=== PATIENT | male | born 1980 | race Caucasian/White ===

== ENCOUNTER 2021-06-19 02:23 | Observation (INO) | payer MEDICAID, SELFPAY ==
[2021-06-19] VITALS (11 sets, daily range): BP systolic 111–126; BP diastolic 60–75; PULSE 73–115; RESP 13–30; TEMP 36.4; O2SAT 90–100; BMI 28.0
--- NOTE | ~2021-06-19 | XR_ITS ---
EXAMINATION: XR CHEST CLINICAL INFORMATION: Shortness of breath COMPARISON: 04/16/2014 TECHNIQUE: Frontal view of the chest was obtained. FINDINGS: The lungs are well expanded. There is no focal consolidation, edema, or effusion. No pneumothorax. The cardiomediastinal silhouette is within normal limits. No acute osseous abnormality. XR/XR chest 1V IMPRESSION: Clear lungs.
[2021-06-19] MEDS: Albuterol Sulfate (0.083%) 2.5 MG/3 ML VIAL.NEB 10 MG INHALE ×3 (02:39→04:18)
[2021-06-19 02:54] LABS: COVID-19 Test Negative (Negative)
[2021-06-19] MEDS: Acetaminophen 325 MG TABLET 975 MG PO (03:16)
--- NOTE | 2021-06-19 03:16 | PC.NURSE ---
Assumed care of pt at 0315. Pt medicated per anthony BUI in process. Pt attached to property assessment monitor and pulse ox. Call light at hand
--- NOTE | 2021-06-19 04:02 | ED_ITS ---
HPI - Asthma General Chief Complaint: Asthma Stated Complaint: sob Time Seen by Provider: 06/19/21 02:26 Source: patient Mode of arrival: EMS History of Present Illness HPI Narrative: 41-year-old male brought in via EMS with a history of asthma that states he has been having worsening shortness of breath over the past 2 days, denies cigarette use but does smoke marijuana daily. Patient then had significant exacerbation which prompted his arrival. EN route, EMS reports giving 125 mg of Solu-Medrol, Mag, as well as 3 DuoNebs. He otherwise denies any fevers, chills, GI or symptoms. Related Data Allergies Allergy/AdvReac Type Severity Reaction Status Date / Time No Known Allergies Allergy Unverified 01/13/20 18:49 [No Known Allergies*] Review of Systems Review of Systems: Pertinent positives and negatives as stated in HPI 10 point review systems is otherwise negative. PMFSH Past Medical History Source: nursing notes reviewed Physical Exam Vital Signs: Vital Signs: Last Vital Signs Pulse 85 06/19/21 05:14 Resp 13 06/19/21 04:19 BP 115/67 06/19/21 03:35 Pulse Ox 97 06/19/21 05:16 BMI result Body Mass Index 28.0 VITAL SIGNS: Reviewed. GENERAL: Well developed, well nourished, in severe distress. HEAD: Normocephalic/atraumatic EYES: PERRLA, EOMI OROPHARYNX: no oral lesions noted, posterior pharynx clear LUNGS: Decreased breath sounds, with expiratory wheeze, tripod, tachypnea, retr actions. SpO2<93> CARDIOVASCULAR: Regular rate and rhythm without noted murmurs ABDOMEN: Soft, non-tender, non-distended with bowel sounds. SKIN: Inspection of the skin reveals no rashes NEUROLOGIC: Alert and oriented x 4. Course Course Course Narrative: 41-year-old male with history and clinical presentation of acute asthma exacerbation. Patient received additional 2 hour long albuterol treatments here in the emergency room with gradual improvement in breathing and asthma symptoms. Patient has received a total of 125 mg Solu-Medrol, 3 DuoNebs, 2 g of Mag, 3-10 mg hour long albuterol treatment and on re-evaluation patient is noted to be resting much more comfortably and is no longer tachypneic. Review of all investigations negative for acute findings. However, patient is noted to be oxygenating at 90-91% on room air and on re-evaluation there is significant improvement in air movement but still mild wheeze bilaterally and patient is no longer tachypneic. Due to the mild hypoxia patient will be admitted after discussion with the hospitalist who accepts admission. MDM - Asthma Lab Data Labs: Lab Results 06/19/21 Range/Units 02:35 COVID-19 ([facility]) Negative (Negative) COVID-19 Clin Com See Note Discharge Plan Discharge Clinical Impression: Asthma with acute exacerbation, Hypoxia, History of colon cancer Patient Disposition: Admitted As Inpatient
--- NOTE | 2021-06-19 05:35 | PM.IMHP ---
History of Present Illness Date of Service: 06/19/21 Chief Complaint: Asthma attack this is a 41-year-old male with past medical history of asthma, colon cancer status post colectomy in remission presents to the hospital with complaints of asthma attack. Patient reports that he started having shortness of breath, wheezing, and mild cough about 3 days ago that have worsened. He denies any fever or chills, no recent sick contacts or recent travel. Denies having any chest pain, no sputum production, no palpitations, no abdominal pain nausea or vomiting, no diarrhea constipation, no urinary symptoms and no lower extremity edema. Patient received high dose of Solu-Medrol, multiple doses of 1 hour albuterol breathing treatments as well as magnesium but he continues to have wheezing therefore will be admitted for further management. On arrival to the ED patient's vitals significant for O2 of 90% on room air, heart rate of 110, respiratory rate of 30, blood pressure 115/67 chest x-ray shows clear lungs, COVID-19 negative Review of Systems Review of Systems: Yes all other systems are reviewed and are negative [facility] Medical History (Updated 06/19/21 @ 05:39 by Kp Clarke MD) History of colon cancer Family History (Updated 06/19/21 @ 05:39 by Kp Clarke MD) Other No family history of cancer Surgical History (Updated 06/19/21 @ 05:39 by Kp Clarke MD) Status post colectomy Social History (Updated 06/19/21 @ 05:40 by Kp Clarke MD) Alcohol intake: never Patient Tobacco Use Status: Never used Tobacco Use of substances other than those prescribed or required for medical reasons: Yes Substance Use Type: Marijuana Meds Allergies Allergy/AdvReac Type Severity Reaction Status Date / Time No Known Allergies Allergy Unverified 01/13/20 18:49 [No Known Allergies*] Physical Exam Vital Signs and Narrative: Vital Signs: Last Vital Signs Pulse 85 06/19/21 05:14 Resp 13 06/19/21 04:19 BP 115/67 06/19/21 03:35 Pulse Ox 97 06/19/21 05:16 BMI result Body Mass Index 28.0 Const: General: cooperative and no acute distress Orientation/consciousness: patient oriented x3 Eyes: General: appearance normal, both eyes and all related structures Pupils: Equal, round and reactive pupils present Resp: Other: reason on expiration Effort & Inspection: normal respiratory effort Cardio: Rate: regular rate Rhythm: regular rhythm GI: Palpation (GI): Soft to palpation Auscultation: normal bowel sounds Skin: General skin exam: no rashes or lesions noted Neuro: General: patient oriented x3 Cranial nerves: Yes Equal, round and reactive pupils present Cognition (Neuro): normal cognition Extrem: General: Yes normal to inspection and Yes no pedal edema Results Labs Labs: Laboratory Results - last 24 hr 06/19/21 02:35 COVID-19 ([facility]) Negative COVID-19 Clin Com See Note Imaging Radiologist's Impressions: Impressions Chest X-Ray 06/19/21 03:05 IMPRESSION: Clear lungs. Assessment and Plan (1) Asthma with acute exacerbation: Status: Acute Plan 41-year-old male with past medical history of asthma presents to the hospital with asthma exacerbation # asthma exacerbation - no evidence of acute pulmonary infection, chest x-ray negative, COVID-19 negative, afebrile, no leukocytosis - will treat with DuoNeb scheduled and p.r.n., Solu-Medrol 40 IV b.i.d. - monitor respiratory status, and O2 saturation # history of colon cancer - in remission DVT prophylaxis: Early ambulation Quality Stroke Does the patient have a stroke diagnosis?: No VTE Prior VTE?: No VTE Risk Level:: Medical - low VTE Device Contraindication: Treatment Not Indicated VTE Drug Contraindication: Treatment Not Indicated
[2021-06-19] MEDS: methylPREDNISolone Sod Succ 40 MG/ML VIAL IVPUSH (06:15)
[2021-06-19 06:22] LABS: MANUAL DIFF FLAG NO
[2021-06-19 06:26] LABS: Basophils Percent Auto 0.3 % (0-2); Eosinophils Absolute Auto 0.2 X10*3/uL (0.0-0.4); Eosinophils Percent Auto 1.7 % (0-4); Hematocrit 38.6 % (42.0-52.0); Hemoglobin 12.5 g/dl (14.0-18.0); Imm Gran Abs Auto 0.03 X10*3/uL (0.00-0.03); Imm Gran Pct Auto 0.3 % (0.0-0.4); Lymphocytes Absolute Auto 0.8 X10*3/uL (1.2-4.9); Lymphocytes Percent Auto 8.8 % (20-40); Mean Corpuscular HGB Conc 32.4 g/dl (31.0-36.0); Mean Corpuscular Hemoglobin 28.4 pg (27.0-33.0); Mean Corpuscular Volume 87.7 fL (80.0-98.0); Mean Platelet Volume 10.1 fL (9.4-12.4); Monocytes Absolute Auto 0.1 X10*3/uL (0.1-1.2); Monocytes Percent Auto 1.5 % (2-11); Neutrophils Absolute Auto 7.6 x10*3/uL (2.0-8.3); Neutrophils Percent Auto 87.4 % (45-73); Platelet Count 201 X10*3/uL (160-400); White Blood Count 8.7 X10*3/uL (4.8-10.8)
[2021-06-19] MEDS: 0.9 % Sodium Chloride Flush 3 ML SYRINGE IVFLUSH (07:02)
[2021-06-19 07:15] LABS: Alanine Aminotransferase 10 U/L (0-40); Albumin Level 4.1 g/dL (3.5-5.0); Alkaline Phosphatase 73 U/L (39-117); Anion Gap 12 (12-20); Aspartate Amino Transferase 12 U/L (5-37); Bilirubin Total 0.2 mg/dL (0.0-1.0); Blood Urea Nitrogen 14 mg/dL (9-16); Calcium 9.2 mg/dL (8.4-10.2); Carbon Dioxide 26 mmol/L (22-29); Chloride 105 mmol/L (96-108); Creatinine Clr Calc Pharmacy 113.6; Estimated Glomerular Filt Rate > 60; Glucose Random 160 mg/dL (60-115); Potassium 3.4 mmol/L (3.3-5.1); Sodium 140 mmol/L (135-145); Total Protein 6.9 g/dL (6.5-8.0)
[2021-06-19] MEDS: Albuterol/Iprat 2.5/0.5MG 3 ML AMPUL.NEB INHALE (08:02)
--- NOTE | 2021-06-19 08:30 | PHA.MEDREC ---
MED REC COMPLETE, Patient says he does not take any medications, no claim history available, he has used albuterol in the past as needed Pharmacy Consult ? Medication Reconciliation Pharmacy has completed the medication reconciliation.
--- NOTE | 2021-06-19 09:44 | PC.NURSE ---
patient requesting to be DC, off o2, tiger text sent to Dr Ambrocio, states he will come see patient.
[2021-06-19] MEDS: predniSONE 20 MG TABLET 40 MG PO (11:02)
--- NOTE | 2021-06-19 11:54 | PM.DS ---
DS: Providers Provider Date of Service: 06/19/21 Date of admission: 06/19/21 05:47 Primary care physician: None Physician DS: Diagnosis Discharge Diagnosis (1) Asthma with acute exacerbation: Status: Acute DS: Summary Hospital Course Hospital Course: 41-year-old male with past medical history of asthma, colon cancer status post colectomy in remission presents to the hospital with complaints of asthma attack.? Patient reports that he started having shortness of breath, wheezing, and mild cough about 3 days ago that have worsened.? He denies any fever or chills, no recent sick contacts or recent travel.? Denies having any chest pain, no sputum production, no palpitations, no abdominal pain nausea or vomiting, no diarrhea constipation, no urinary symptoms and no lower extremity edema. Patient received high dose of Solu-Medrol, multiple doses of 1 hour albuterol breathing treatments as well as magnesium but he continues to have wheezing therefore will be admitted for further management.? On arrival to the ED patient's vitals significant for O2 of 90% on room air, heart rate of 110, respiratory rate of 30, blood pressure 115/67 ?chest x-ray shows clear lungs, COVID-19 negative. Hospital course: Patient came with asthma exacerbation: Started on nebs, steroids and oxygen seems to be improved-going home with from medications and steroids. Patient is going home with p.o. steroids. Above management discussed with the patient in detail length he understand and in agreement with the above plan, time spent 50 minutes and 50% time spent on counseling. Significant findings: As above. Procedures performed: None. Treatment and response: As above. Complications: None. Time Spent with Patient Time attestation: Total time spent providing and/or coordinating discharge services: Discharge coordination time: Greater than 30 minutes Quality: Stroke Does the patient have a stroke diagnosis?: No Physical Exam Vital Signs: Vital Signs: Last Vital Signs Temp 97.5 F 06/19/21 07:00 Pulse 84 06/19/21 08:02 Resp 16 06/19/21 08:02 BP 119/75 06/19/21 07:00 Pulse Ox 96 06/19/21 07:12 BMI result Body Mass Index 28.0 Appearance: Alert.? Oriented X3.? not in distress.? Eyes: Pupils equal, round and reactive to light.? Sclera nonicteric.? ENT: Pharynx normal.? Moist mucous membranes. cvs: rrr, [id number] , no murmur res: clear to auscultation ,no rhonchii or wheezing abd: no rebound or guarding ,nt, bs present. ext pulses present , no cyanosis ,Gait well balanced well coordinated. neuro: axo3 , nonfocal. DS: Data Data Completed and Pending Labs on day of discharge: Laboratory Results - last 24 hr 06/19/21 06/19/21 06/19/21 02:35 06:01 06:01 WBC 8.7 RBC 4.40 L Hgb 12.5 L Hct 38.6 L MCV 87.7 MCH 28.4 MCHC 32.4 RDW 13.0 Plt Count 201 MPV 10.1 Immature Gran % (Auto) 0.3 Neut % (Auto) 87.4 H Lymph % (Auto) 8.8 L [place] % (Auto) 1.5 L Eos % (Auto) 1.7 Baso % (Auto) 0.3 Lymph # (Auto) 0.8 L [place] # (Auto) 0.1 Eos # (Auto) 0.2 Baso # (Auto) 0.0 Abs Immat Gran (auto) 0.03 Absolute Neuts (auto) 7.6 Absolute Nucleated RBC 0.000 Nucleated RBC % (auto) 0.0 Sodium 140 Potassium 3.4 Chloride 105 Carbon Dioxide 26 Anion Gap 12 BUN 14 Creatinine 0.94 Estim Creat Clear Calc 113.6 Estimated GFR > 60 Random Glucose 160 H Calcium 9.2 Total Bilirubin 0.2 AST 12 ALT 10 Alkaline Phosphatase 73 Total Protein 6.9 Albumin 4.1 COVID-19 ([facility]) Negative COVID-19 Clin Com See Note 06/19/21 06/19/21 06:01 06:01 WBC Cancelled RBC Cancelled Hgb Cancelled Hct Cancelled MCV Cancelled MCH Cancelled MCHC Cancelled RDW Cancelled Plt Count Cancelled MPV Cancelled Immature Gran % (Auto) Cancelled Neut % (Auto) Cancelled Lymph % (Auto) Cancelled [place] % (Auto) Cancelled Eos % (Auto) Cancelled Baso % (Auto) Cancelled Lymph # (Auto) Cancelled [place] # (Auto) Cancelled Eos # (Auto) Cancelled Baso # (Auto) Cancelled Abs Immat Gran (auto) Cancelled Absolute Neuts (auto) Cancelled Absolute Nucleated RBC Cancelled Nucleated RBC % (auto) Cancelled Sodium Cancelled Potassium Cancelled Chloride Cancelled Carbon Dioxide Cancelled Anion Gap Cancelled BUN Cancelled Creatinine Cancelled Estim Creat Clear Calc Cancelled Estimated GFR Cancelled Random Glucose Cancelled Calcium Cancelled Total Bilirubin AST ALT Alkaline Phosphatase Total Protein Albumin COVID-19 ([facility]) COVID-19 Clin Com Discharge Plan Discharge Patient Disposition: Home, Self-Care Discharge Diagnosis: Asthma exacerbation Referrals: Physician,None [Primary Care Provider] - 1 Week Discharge Medications: New prednisone 20 mg Tablet 40 mg PO DAILY Qty: 6 0RF Breo Ellipta 100-25 mcg/dose Blister With Device 1 ea inhalation RDAILY Qty: 28 0RF Continued albuterol sulfate 90 mcg/actuation Hfa Aerosol Inhaler 2 puff INHALATION Q4H PRN (Reason: Respiratory Distress) 0RF Discharge Orders: Discharge Order (Routine); Ordered 06/19/21 Ordered By: Carey Ambrocio Diet: advance to usual diet Activity on Discharge: As tolerated Stand Alone Forms: Patient Portal Discharge page Care Plan Goals: Patient came with asthma exacerbation: Started on nebs, steroids and oxygen seems to be improved-going home with from medications and steroids. Patient is going home with p.o. steroids. Health Concerns: As above. Plan of Treatment: As above. Assessment: As above. Discharge Date/Time: 06/19/21 11:08
== END 2021-06-19 11:08 | disposition home or self-care (01) ==
LOC: HO.ED 05:46 → HO.EDOVER 05:55
PROVIDERS: Admitting Provider Internal Medicine; Emergency Provider Student in an Organized Health Care Education/Training Program; Visit Provider Internal Medicine
DX: J45.901 Unspecified asthma with (acute) exacerbation (principal); R09.02 Hypoxemia; F12.20 Cannabis dependence, uncomplicated; Z20.822 Contact with and (suspected) exposure to COVID-19; Z85.038 Personal history of other malignant neoplasm of large intestine; Z90.49 Acquired absence of other specified parts of digestive tract; Z79.899 Other long term (current) drug therapy
CPT/HCPCS: 36415; 71045; 80053; 85025; 87635; 94640; 94644; 94645; 99218; 99284; J2920

== ENCOUNTER 2021-06-30 01:00 | Emergency (ER) | payer MEDICAID, SELFPAY ==
--- NOTE | ~2021-06-30 | CT_ITS ---
EXAMINATION: CT ABDOMEN AND PELVIS WITHOUT CONTRAST CLINICAL INFORMATION: Right flank pain COMPARISON: None TECHNIQUE: Multidetector volumetric imaging was performed from the superior aspect of the liver through the pubic symphysis. Sagittal and coronal reformatted images were obtained on the technologist's workstation. This CT examination was performed using dose optimization techniques as appropriate, variously including the following: *Automated exposure control *Adjustment of mA and/or kV according to patient size (this includes techniques or standardized protocols for targeted exams where dose is matched to indication/reason for exam; i.e. extremities or head) *Use of iterative reconstruction technique DLP: 544 mGy-cm FINDINGS: LUNG BASES: The visualized lung bases are unremarkable. LIVER, GALLBLADDER, AND BILIARY TREE: The liver is normal in size, shape, and attenuation. No focal hepatic lesion or biliary ductal dilatation is present. The gallbladder is unremarkable with no evidence of radiopaque gallstones, gallbladder wall thickening, or obvious pericholecystic inflammatory changes. PANCREAS: Unremarkable. SPLEEN: Unremarkable. ADRENAL GLANDS: Unremarkable. KIDNEYS AND URETERS: No hydronephrosis or obstructing calculus bilaterally. There is a 4 mm calculus in the mid left kidney. Few scattered tiny right renal calculi are also noted. BLADDER: Mildly distended and grossly unremarkable. GASTROINTESTINAL TRACT: Suture line is present along the sigmoid colon. No evidence of bowel obstruction. No significant bowel wall thickening is seen. The appendix is unremarkable. No free fluid or free air is seen. ABDOMINAL WALL: No significant hernia is appreciated. LYMPH NODES: Normal. VASCULAR: Unremarkable. PELVIC VISCERA: Unremarkable. OSSEOUS STRUCTURES: Unremarkable. CT/CT abdomen pelvis wo con IMPRESSION: No hydronephrosis or obstructing calculus. Few bilateral renal calculi noted. Fleischner guidelines were followed.
[2021-06-30 01:04] VITALS: BP 132/93; PULSE 15; RESP 16; TEMP 36.7; O2SAT 97; BMI 28.0
[2021-06-30 01:54] LABS: Appearance Urine CLEAR; Color Urine YELLOW; Glucose Urine UA NEG (NEG); Leukocyte Esterase Urine NEG (NEG); Nitrite Urine NEG (NEG); PH 5.5 (5.0-8.0); Specific Gravity - Urine >= 1.030 (1.005-1.025); Urine Blood NEG (NEG); Urine Ketones NEG (NEG); Urine Protein NEG (NEG-TRACE)
[2021-06-30 02:27] VITALS: BP 135/64; PULSE 99; RESP 16; TEMP 37; O2SAT 94
[2021-06-30 02:55] LABS: MANUAL DIFF FLAG NO
[2021-06-30 02:56] LABS: Basophils Percent Auto 0.2 % (0-2); Eosinophils Absolute Auto 0.3 X10*3/uL (0.0-0.4); Eosinophils Percent Auto 1.9 % (0-4); Hematocrit 38.4 % (42.0-52.0); Hemoglobin 12.7 g/dl (14.0-18.0); Imm Gran Abs Auto 0.03 X10*3/uL (0.00-0.03); Imm Gran Pct Auto 0.2 % (0.0-0.4); Lymphocytes Absolute Auto 3.3 X10*3/uL (1.2-4.9); Lymphocytes Percent Auto 25.3 % (20-40); Mean Corpuscular HGB Conc 33.1 g/dl (31.0-36.0); Mean Corpuscular Hemoglobin 28.5 pg (27.0-33.0); Mean Corpuscular Volume 86.3 fL (80.0-98.0); Mean Platelet Volume 9.2 fL (9.4-12.4); Monocytes Absolute Auto 1.1 X10*3/uL (0.1-1.2); Monocytes Percent Auto 8.3 % (2-11); Neutrophils Absolute Auto 8.2 x10*3/uL (2.0-8.3); Neutrophils Percent Auto 64.1 % (45-73); Platelet Count 284 X10*3/uL (160-400); Red Blood Count 4.45 X10*6/uL (4.60-5.80); Red Cell Distribution Width 12.8 % (11.0-16.0); White Blood Count 12.9 X10*3/uL (4.8-10.8)
--- NOTE | 2021-06-30 03:03 | ED_ITS ---
HPI - Abdominal Pain General Chief Complaint: Abdominal Pain Stated Complaint: ? kidney stones Time Seen by Provider: 06/30/21 03:03 Source: patient Mode of arrival: ambulatory History of Present Illness HPI narrative: 41-year-old male who presents with bilateral flank pain but states that the right is much stronger and radiates down into his leg and this has been associated with nausea but denies any vomiting or diarrhea and states he has had some chills but denies any fevers. Related Data Home Medications Medication Instructions Recorded Confirmed albuterol sulfate 90 mcg/actuation 2 puff INHALATION Q4H PRN 06/19/21 06/19/21 aerosol inhaler Previous Rx's Medication Instructions Recorded fluticasone furoate 100 1 ea INHALATION RDAILY #28 ea 06/19/21 mcg-vilanterol 25 mcg/dose inhalation powder (Breo Ellipta) prednisone 20 mg tablet 40 mg PO DAILY #6 tab 06/19/21 Allergies Allergy/AdvReac Type Severity Reaction Status Date / Time No Known Allergies Allergy Unverified 01/13/20 18:49 [No Known Allergies*] Review of Systems Review of Systems Pertinent positives and negatives as stated in HPI 10 point review of systems is otherwise negative. PMFSH Past Medical History Source: nursing notes reviewed Medical History History of colon cancer Surgical History Status post colectomy Family History Family History Other No family history of cancer Social History Social History Alcohol intake: never Patient Tobacco Use Status: Never used Tobacco Use of substances other than those prescribed or required for medical reasons: Yes Substance Use Type: Marijuana Substance Use Frequency: Chronic Longstanding Advance Directives: No Physical Exam ED Vital Signs: Vital Signs - 24 hr 06/30/21 01:04 06/30/21 02:27 06/30/21 04:09 Temperature 98.1 F 98.6 F Pulse Rate 15 L 99 87 Respiratory Rate 16 16 16 Blood Pressure 132/93 H 135/64 108/66 Pulse Oximetry 97 94 95 BMI result Body Mass Index 28.0 VITAL SIGNS: Reviewed. GENERAL: Well developed, well nourished, in moderate distress. HEAD: Normocephalic/atraumatic EYES: PERRLA, EOMI EARS: Ext canals without abnormality OROPHARYNX: no oral lesions noted, posterior pharynx clear LUNGS: Normal breath sounds. No adventitious sounds or accessory muscle use. SpO2<97> CARDIOVASCULAR: Regular rate and rhythm without noted murmurs. ABDOMEN: Soft, tenderness with in right lower quadrant, McBurney's negative, non-distended with bowel sounds, mild right-sided CVA tenderness MUSCULOSKELETAL: No tenderness, deformities, or effusions noted on gross inspection. EXTREMITIES: No cyanosis, clubbing or edema. SKIN: Inspection of the skin reveals no rashes NEUROLOGIC: Alert and oriented x 4. Strength and sensation to light touch were grossly intact x 4. Course Course Course Narrative: 41-year-old male with history and clinical presentation consistent with renal colic but the possibility of UTI, appendicitis, low clinical suspicion for obstruction. Review of all investigations although there is a mild leukocytosis there is no CT evidence of renal calculi, it is possible patient has passed the stone. On re-evaluation patient is feeling much better and given the results for his workup and otherwise discharged home in stable condition. MDM - Abdominal Pain Lab Data Result diagrams: 06/30/21 02:49 06/30/21 02:49 Labs: Lab Results 06/30/21 06/30/21 06/30/21 Range/Units 01:46 01:46 02:49 WBC 12.9 H (4.8-10.8) X10*3/uL RBC 4.45 L (4.60-5.80) X10*6/uL Hgb 12.7 L (14.0-18.0) g/dl Hct 38.4 L (42.0-52.0) % MCV 86.3 (80.0-98.0) fL MCH 28.5 (27.0-33.0) pg MCHC 33.1 (31.0-36.0) g/dl RDW 12.8 (11.0-16.0) % Plt Count 284 D (160-400) X10*3/uL MPV 9.2 L (9.4-12.4) fL Immature Gran % (Auto) 0.2 (0.0-0.4) % Neut % (Auto) 64.1 (45-73) % Lymph % (Auto) 25.3 (20-40) % [place] % (Auto) 8.3 (2-11) % Eos % (Auto) 1.9 (0-4) % Baso % (Auto) 0.2 (0-2) % Lymph # (Auto) 3.3 (1.2-4.9) X10*3/uL [place] # (Auto) 1.1 (0.1-1.2) X10*3/uL Eos # (Auto) 0.3 (0.0-0.4) X10*3/uL Baso # (Auto) 0.0 (0.0-0.2) X10*3/uL Abs Immat Gran (auto) 0.03 (0.00-0.03) X10*3/uL Absolute Neuts (auto) 8.2 (2.0-8.3) x10*3/uL Absolute Nucleated RBC 0.000 (0.0-0.012) X10*3/uL Nucleated RBC % (auto) 0.0 (0.0-0.2) /100WBC Sodium (135-145) mmol/L Potassium (3.3-5.1) mmol/L Chloride (96-108) mmol/L Carbon Dioxide (22-29) mmol/L Anion Gap (12-20) BUN (9-16) mg/dL Creatinine (0.5-1.4) mg/dL Estim Creat Clear Calc Estimated GFR Random Glucose (60-115) mg/dL Calcium (8.4-10.2) mg/dL Total Bilirubin (0.0-1.0) mg/dL Direct Bilirubin (0.0-0.5) mg/dL AST (5-37) U/L ALT (0-40) U/L Alkaline Phosphatase (39-117) U/L Total Protein (6.5-8.0) g/dL Albumin (3.5-5.0) g/dL Lipase (8-78) U/L Urine Color YELLOW Urine Appearance CLEAR Urine pH 5.5 (5.0-8.0) Ur Specific [place] >= 1.030 H (1.005-1.025) Urine Protein NEG (NEG-TRACE) MG/DL Urine Glucose (UA) NEG (NEG) MG/DL Urine Ketones NEG (NEG) MG/DL Urine Blood NEG (NEG) Urine Nitrite NEG (NEG) Ur Leukocyte Esterase NEG (NEG) Urine Opiates Screen POSITIVE H (Not Detect) Urine Fentanyl Screen POSITIVE H (Not Detect) Ur Barbiturates Screen Not Detected (Not Detect) Ur Phencyclidine Scrn Not Detected (Not Detect) Ur Amphetamines Screen Not Detected (Not Detect) U Benzodiazepines Scrn Not Detected (Not Detect) Urine Cocaine Screen POSITIVE H (Not Detect) U Marijuana (THC) Screen POSITIVE H (Not Detect) 06/30/21 Range/Units 02:49 WBC (4.8-10.8) X10*3/uL RBC (4.60-5.80) X10*6/uL Hgb (14.0-18.0) g/dl Hct (42.0-52.0) % MCV (80.0-98.0) fL MCH (27.0-33.0) pg MCHC (31.0-36.0) g/dl RDW (11.0-16.0) % Plt Count (160-400) X10*3/uL MPV (9.4-12.4) fL Immature Gran % (Auto) (0.0-0.4) % Neut % (Auto) (45-73) % Lymph % (Auto) (20-40) % [place] % (Auto) (2-11) % Eos % (Auto) (0-4) % Baso % (Auto) (0-2) % Lymph # (Auto) (1.2-4.9) X10*3/uL [place] # (Auto) (0.1-1.2) X10*3/uL Eos # (Auto) (0.0-0.4) X10*3/uL Baso # (Auto) (0.0-0.2) X10*3/uL Abs Immat Gran (auto) (0.00-0.03) X10*3/uL Absolute Neuts (auto) (2.0-8.3) x10*3/uL Absolute Nucleated RBC (0.0-0.012) X10*3/uL Nucleated RBC % (auto) (0.0-0.2) /100WBC Sodium 140 (135-145) mmol/L Potassium 4.3 D (3.3-5.1) mmol/L Chloride 103 (96-108) mmol/L Carbon Dioxide 30 H (22-29) mmol/L Anion Gap 11 L (12-20) BUN 23 H D (9-16) mg/dL Creatinine 1.14 (0.5-1.4) mg/dL Estim Creat Clear Calc 93.6 Estimated GFR > 60 Random Glucose 89 D (60-115) mg/dL Calcium 9.5 (8.4-10.2) mg/dL Total Bilirubin 0.8 (0.0-1.0) mg/dL Direct Bilirubin 0.3 (0.0-0.5) mg/dL AST 15 (5-37) U/L ALT 8 (0-40) U/L Alkaline Phosphatase 68 (39-117) U/L Total Protein 7.0 (6.5-8.0) g/dL Albumin 4.3 (3.5-5.0) g/dL Lipase 9 (8-78) U/L Urine Color Urine Appearance Urine pH (5.0-8.0) Ur Specific [place] (1.005-1.025) Urine Protein (NEG-TRACE) MG/DL Urine Glucose (UA) (NEG) MG/DL Urine Ketones (NEG) MG/DL Urine Blood (NEG) Urine Nitrite (NEG) Ur Leukocyte Esterase (NEG) Urine Opiates Screen (Not Detect) Urine Fentanyl Screen (Not Detect) Ur Barbiturates Screen (Not Detect) Ur Phencyclidine Scrn (Not Detect) Ur Amphetamines Screen (Not Detect) U Benzodiazepines Scrn (Not Detect) Urine Cocaine Screen (Not Detect) U Marijuana (THC) Screen (Not Detect) Discharge Plan Discharge Clinical Impression: Flank pain, Substance use Patient Disposition: Home, Self-Care Instructions: Polysubstance Abuse (ED), Flank Pain (ED) Additional Instructions: Follow-up with your primary care provider. Recommend [id number] Tylenol/ibuprofen as needed for pain control. Increase fluid hydration especially with water. Return to the ER for worsening symptoms. Prescriptions: No Action albuterol sulfate 90 mcg/actuation Hfa Aerosol Inhaler 2 puff INHALATION Q4H PRN (Reason: Respiratory Distress) 0RF prednisone 20 mg Tablet 40 mg PO DAILY Qty: 6 0RF Breo Ellipta 100-25 mcg/dose Blister With Device 1 ea inhalation RDAILY Qty: 28 0RF
[2021-06-30 03:05] LABS: Amphetamine Screen Urine Not Detected (Not Detect); Barbiturates, Urine Not Detected (Not Detect); Benzodiazepines Screen Urine Not Detected (Not Detect); Cannabinoid Screen Urine POSITIVE (Not Detect); Cocaine Screen Urine POSITIVE (Not Detect); Fentanyl, urine POSITIVE (Not Detect); Opiate Screen Urine POSITIVE (Not Detect); Phencyclidine Screen Urine Not Detected (Not Detect)
[2021-06-30 03:14] LABS: Alanine Aminotransferase 8 U/L (0-40); Albumin Level 4.3 g/dL (3.5-5.0); Alkaline Phosphatase 68 U/L (39-117); Anion Gap 11 (12-20); Aspartate Amino Transferase 15 U/L (5-37); Bilirubin Direct 0.3 mg/dL (0.0-0.5); Bilirubin Total 0.8 mg/dL (0.0-1.0); Blood Urea Nitrogen 23 mg/dL (9-16); Calcium 9.5 mg/dL (8.4-10.2); Carbon Dioxide 30 mmol/L (22-29); Chloride 103 mmol/L (96-108); Creatinine Clr Calc Pharmacy 93.6; Estimated Glomerular Filt Rate > 60; Glucose Random 89 mg/dL (60-115); Lipase 9 U/L (8-78); Potassium 4.3 mmol/L (3.3-5.1); Sodium 140 mmol/L (135-145)
[2021-06-30] MEDS: Acetaminophen 325 MG TABLET 975 MG PO (03:40)
[2021-06-30] MEDS: Ketorolac Tromethamine 15 MG/ML VIAL IM (03:41)
[2021-06-30] MEDS: Ondansetron ODT 4 MG TAB.RAPDIS TRANSLINGU (03:42)
[2021-06-30 04:09] VITALS: BP 108/66; PULSE 87; RESP 16; O2SAT 95
== END 2021-06-30 05:26 | disposition home or self-care (01) ==
PROVIDERS: Emergency Provider Student in an Organized Health Care Education/Training Program
DX: R10.9 Unspecified abdominal pain (principal); F19.90 Other psychoactive substance use, unspecified, uncomplicated; Z79.899 Other long term (current) drug therapy
CPT/HCPCS: 36415; 74176; 80053; 80307; 81003; 82248; 83690; 85025; 96372; 99284; 99285; J1885

== ENCOUNTER 2021-07-27 14:57 | Emergency (ER) | payer MEDICAID, SELFPAY ==
[2021-07-27 16:01] VITALS: BP 131/70; PULSE 92; RESP 19; TEMP 36.6; O2SAT 96; BMI 28.0
[2021-07-27 16:15] LABS: Basophils Percent Auto 0.5 % (0-2); Eosinophils Absolute Auto 0.3 X10*3/uL (0.0-0.4); Eosinophils Percent Auto 3.4 % (0-4); Hematocrit 38.3 % (42.0-52.0); Hemoglobin 12.5 g/dl (14.0-18.0); Imm Gran Abs Auto 0.02 X10*3/uL (0.00-0.03); Imm Gran Pct Auto 0.2 % (0.0-0.4); Lymphocytes Absolute Auto 2.6 X10*3/uL (1.2-4.9); Lymphocytes Percent Auto 31.2 % (20-40); MANUAL DIFF FLAG NO; Mean Corpuscular HGB Conc 32.6 g/dl (31.0-36.0); Mean Corpuscular Volume 88.9 fL (80.0-98.0); Mean Platelet Volume 9.9 fL (9.4-12.4); Monocytes Absolute Auto 0.9 X10*3/uL (0.1-1.2); Monocytes Percent Auto 10.9 % (2-11); Neutrophils Absolute Auto 4.5 x10*3/uL (2.0-8.3); Neutrophils Percent Auto 53.8 % (45-73); Platelet Count 262 X10*3/uL (160-400); Red Blood Count 4.31 X10*6/uL (4.60-5.80); Red Cell Distribution Width 12.9 % (11.0-16.0); White Blood Count 8.4 X10*3/uL (4.8-10.8)
[2021-07-27 16:33] LABS: Alanine Aminotransferase 15 U/L (0-40); Albumin Level 4.4 g/dL (3.5-5.0); Alkaline Phosphatase 67 U/L (39-117); Anion Gap 10 (12-20); Aspartate Amino Transferase 19 U/L (5-37); Bilirubin Direct 0.5 mg/dL (0.0-0.5); Bilirubin Total 1.2 mg/dL (0.0-1.0); Blood Urea Nitrogen 15 mg/dL (9-16); Calcium 9.5 mg/dL (8.4-10.2); Carbon Dioxide 32 mmol/L (22-29); Chloride 103 mmol/L (96-108); Creatinine Clr Calc Pharmacy 86.8; Estimated Glomerular Filt Rate > 60; Glucose Random 139 mg/dL (60-115); Lipase 9 U/L (8-78); Potassium 3.6 mmol/L (3.3-5.1); Sodium 141 mmol/L (135-145)
[2021-07-27 16:39] LABS: Appearance Urine HAZY; Color Urine DK YELLOW; Glucose Urine UA NEG (NEG); Leukocyte Esterase Urine NEG (NEG); Nitrite Urine NEG (NEG); Specific Gravity - Urine >= 1.030 (1.005-1.025); Urine Blood NEG (NEG); Urine Ketones 5 MG/DL (NEG); Urine Protein TRACE MG/DL (NEG-TRACE)
[2021-07-27 16:54] LABS: Amphetamine Screen Urine Not Detected (Not Detect); Barbiturates, Urine Not Detected (Not Detect); Benzodiazepines Screen Urine Not Detected (Not Detect); Cannabinoid Screen Urine POSITIVE (Not Detect); Cocaine Screen Urine POSITIVE (Not Detect); Fentanyl, urine POSITIVE (Not Detect); Opiate Screen Urine POSITIVE (Not Detect); Phencyclidine Screen Urine Not Detected (Not Detect)
[2021-07-27 20:54] VITALS: BP 120/74; PULSE 81; RESP 16; TEMP 36.8; O2SAT 96
--- NOTE | 2021-07-27 21:33 | ED_ITS ---
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 Patient states that he has other well as been feeling fine and denies any fever, chills, nausea, vomiting, abdominal pain, shortness of breath/chest pain/palpitations and denies any diarrhea but still has intermittent bleeding with defecation which is not new. To that point, patient is receiving a referral to gastroenterology from his primary care provider. Patient denies any recent unexplained weight loss, night sweats and is otherwise eating and drinking well. Related Data Home Medications Medication Instructions Recorded Confirmed albuterol sulfate 90 mcg/actuation 2 puff INHALATION Q4H PRN 06/19/21 06/19/21 aerosol inhaler Previous Rx's Medication Instructions Recorded fluticasone furoate 100 1 ea INHALATION RDAILY #28 ea 06/19/21 mcg-vilanterol 25 mcg/dose inhalation powder (Breo Ellipta) prednisone 20 mg tablet 40 mg PO DAILY #6 tab 06/19/21 Allergies Allergy/AdvReac Type Severity Reaction Status Date / Time No Known Allergies Allergy Unverified 01/13/20 18:49 [No Known Allergies*] Review of Systems Review of Systems: Pertinent positives and negatives as stated in HPI 10 point review of systems is otherwise negative. [facility] Past Medical History Source: nursing notes reviewed Medical History History of colon cancer Surgical History Status post colectomy Family History Family History Other No family history of cancer Social History Social History Alcohol intake: never Patient Tobacco Use Status: Never used Tobacco Substance Use Type: Marijuana Advance Directives: No Advance Directives Information Provided: Yes Physical Exam ED Vital Signs: Vital Signs - 24 hr 07/27/21 16:01 07/27/21 20:54 Temperature 98 F 98.2 F Pulse Rate 92 81 Respiratory Rate 19 16 Blood Pressure 131/70 120/74 Pulse Oximetry 96 96 BMI result Body Mass Index 28.0 VITAL SIGNS: Reviewed. GENERAL: Well developed, well nourished, in no acute distress. HEAD: Normocephalic/atraumatic EYES: PERRLA, EOMI EARS: Ext canals without abnormality OROPHARYNX: no oral lesions noted, posterior pharynx clear LUNGS: Normal breath sounds. No adventitious sounds or accessory muscle use. SpO2<96> CARDIOVASCULAR: Regular rate and rhythm without noted murmurs ABDOMEN: Soft, non-tender, non-distended with bowel sounds. SKIN: Inspection of the skin reveals no rashes NEUROLOGIC: Alert and oriented x 4. Strength and sensation to light touch were grossly intact x 4. Course Course Course Narrative: This is a 41-year-old male with history and clinical presentation consistent wit h history of colon CA and intermittent rectal bleeding but on review of all investigations patient has stable hemoglobin, is not tachycardic/no experiencing shortness of breath or evidence of tachypnea, blood pressure is within normal limits and patient is currently asymptomatic. I have reviewed all microbiology, imaging, and prior lab work without acute findings. Patient is otherwise discharged in stable condition and instructed to follow-up with his appointment with Gastroenterology and a copy of this note will be sent to his primary care provider. Medical Decision Making Lab Data Result diagrams: 07/27/21 16:10 07/27/21 16:10 Labs: Lab Results 07/27/21 07/27/21 07/27/21 Range/Units 16:10 16:10 16:18 WBC 8.4 (4.8-10.8) X10*3/uL RBC 4.31 L (4.60-5.80) X10*6/uL Hgb 12.5 L (14.0-18.0) g/dl Hct 38.3 L (42.0-52.0) % MCV 88.9 (80.0-98.0) fL MCH 29.0 (27.0-33.0) pg MCHC 32.6 (31.0-36.0) g/dl RDW 12.9 (11.0-16.0) % Plt Count 262 (160-400) X10*3/uL MPV 9.9 (9.4-12.4) fL Immature Gran % (Auto) 0.2 (0.0-0.4) % Neut % (Auto) 53.8 (45-73) % Lymph % (Auto) 31.2 (20-40) % [place] % (Auto) 10.9 (2-11) % Eos % (Auto) 3.4 (0-4) % Baso % (Auto) 0.5 (0-2) % Lymph # (Auto) 2.6 (1.2-4.9) X10*3/uL [place] # (Auto) 0.9 (0.1-1.2) X10*3/uL Eos # (Auto) 0.3 (0.0-0.4) X10*3/uL Baso # (Auto) 0.0 (0.0-0.2) X10*3/uL Abs Immat Gran (auto) 0.02 (0.00-0.03) X10*3/uL Absolute Neuts (auto) 4.5 (2.0-8.3) x10*3/uL Absolute Nucleated RBC 0.000 (0.0-0.012) X10*3/uL Nucleated RBC % (auto) 0.0 (0.0-0.2) /100WBC Sodium 141 (135-145) mmol/L Potassium 3.6 (3.3-5.1) mmol/L Chloride 103 (96-108) mmol/L Carbon Dioxide 32 H (22-29) mmol/L Anion Gap 10 L (12-20) BUN 15 (9-16) mg/dL Creatinine 1.23 (0.5-1.4) mg/dL Estim Creat Clear Calc 86.8 Estimated GFR > 60 Random Glucose 139 H D (60-115) mg/dL Calcium 9.5 (8.4-10.2) mg/dL Total Bilirubin 1.2 H (0.0-1.0) mg/dL Direct Bilirubin 0.5 (0.0-0.5) mg/dL AST 19 (5-37) U/L ALT 15 (0-40) U/L Alkaline Phosphatase 67 (39-117) U/L Total Protein 7.0 (6.5-8.0) g/dL Albumin 4.4 (3.5-5.0) g/dL Lipase 9 (8-78) U/L Urine Color Urine Appearance Urine pH (5.0-8.0) Ur Specific [place] (1.005-1.025) Urine Protein (NEG-TRACE) MG/DL Urine Glucose (UA) (NEG) MG/DL Urine Ketones (NEG) MG/DL Urine Blood (NEG) Urine Nitrite (NEG) Ur Leukocyte Esterase (NEG) Urine Opiates Screen POSITIVE H (Not Detect) Urine Fentanyl Screen POSITIVE H (Not Detect) Ur Barbiturates Screen Not Detected (Not Detect) Ur Phencyclidine Scrn Not Detected (Not Detect) Ur Amphetamines Screen Not Detected (Not Detect) U Benzodiazepines Scrn Not Detected (Not Detect) Urine Cocaine Screen POSITIVE H (Not Detect) U Marijuana (THC) Screen POSITIVE H (Not Detect) 07/27/21 Range/Units 16:18 WBC (4.8-10.8) X10*3/uL RBC (4.60-5.80) X10*6/uL Hgb (14.0-18.0) g/dl Hct (42.0-52.0) % MCV (80.0-98.0) fL MCH (27.0-33.0) pg MCHC (31.0-36.0) g/dl RDW (11.0-16.0) % Plt Count (160-400) X10*3/uL MPV (9.4-12.4) fL Immature Gran % (Auto) (0.0-0.4) % Neut % (Auto) (45-73) % Lymph % (Auto) (20-40) % [place] % (Auto) (2-11) % Eos % (Auto) (0-4) % Baso % (Auto) (0-2) % Lymph # (Auto) (1.2-4.9) X10*3/uL [place] # (Auto) (0.1-1.2) X10*3/uL Eos # (Auto) (0.0-0.4) X10*3/uL Baso # (Auto) (0.0-0.2) X10*3/uL Abs Immat Gran (auto) (0.00-0.03) X10*3/uL Absolute Neuts (auto) (2.0-8.3) x10*3/uL Absolute Nucleated RBC (0.0-0.012) X10*3/uL Nucleated RBC % (auto) (0.0-0.2) /100WBC Sodium (135-145) mmol/L Potassium (3.3-5.1) mmol/L Chloride (96-108) mmol/L Carbon Dioxide (22-29) mmol/L Anion Gap (12-20) BUN (9-16) mg/dL Creatinine (0.5-1.4) mg/dL Estim Creat Clear Calc Estimated GFR Random Glucose (60-115) mg/dL Calcium (8.4-10.2) mg/dL Total Bilirubin (0.0-1.0) mg/dL Direct Bilirubin (0.0-0.5) mg/dL AST (5-37) U/L ALT (0-40) U/L Alkaline Phosphatase (39-117) U/L Total Protein (6.5-8.0) g/dL Albumin (3.5-5.0) g/dL Lipase (8-78) U/L Urine Color DK YELLOW Urine Appearance HAZY Urine pH 6.0 (5.0-8.0) Ur Specific [place] >= 1.030 H (1.005-1.025) Urine Protein TRACE (NEG-TRACE) MG/DL Urine Glucose (UA) NEG (NEG) MG/DL Urine Ketones 5 (NEG) MG/DL Urine Blood NEG (NEG) Urine Nitrite NEG (NEG) Ur Leukocyte Esterase NEG (NEG) Urine Opiates Screen (Not Detect) Urine Fentanyl Screen (Not Detect) Ur Barbiturates Screen (Not Detect) Ur Phencyclidine Scrn (Not Detect) Ur Amphetamines Screen (Not Detect) U Benzodiazepines Scrn (Not Detect) Urine Cocaine Screen (Not Detect) U Marijuana (THC) Screen (Not Detect) Discharge Plan Discharge Clinical Impression: History of cancer, History of rectal bleeding, Polysubstance (including opioids) dependence, daily use Patient Disposition: Home, Self-Care Instructions: Rectal Bleeding (ED) Additional Instructions: 1. Marielena un seguimiento con nunez proveedor de atenci?n primaria llamando a la oficina el lunes por la ma?taylor. 2. Seguimiento con Gastroenterolog?a para nunez colonoscop?a seg?n lo programado. Regrese a la maximo de emergencias por un empeoramiento janis de cualquier s?ntoma que incluya sangrado rectal. Patient was seen in the emergency room this evening at the direction of his primary care provider for evaluation. He is being discharged in stable condition. Prescriptions: No Action albuterol sulfate 90 mcg/actuation Hfa Aerosol Inhaler 2 puff INHALATION Q4H PRN (Reason: Respiratory Distress) 0RF prednisone 20 mg Tablet 40 mg PO DAILY Qty: 6 0RF Breo Ellipta 100-25 mcg/dose Blister With Device 1 ea inhalation RDAILY Qty: 28 0RF Referrals: Mauricio Atkins MD [Physician] - 2 days Print Language: Maldivian
== END 2021-07-27 22:02 | disposition home or self-care (01) ==
PROVIDERS: Emergency Provider Student in an Organized Health Care Education/Training Program
DX: F11.20 Opioid dependence, uncomplicated (principal); F19.20 Other psychoactive substance dependence, uncomplicated; K62.5 Hemorrhage of anus and rectum; Z85.038 Personal history of other malignant neoplasm of large intestine
CPT/HCPCS: 36415; 80048; 80076; 80307; 81003; 83690; 85025; 99283

== ENCOUNTER → 2021-08-02 10:09 | Outpatient (BNVA) | payer MEDICAID, SELFPAY | PROVIDERS: Visit Provider Physician Assistant | DX: K59.09 Other constipation (principal); Z85.038 Personal history of other malignant neoplasm of large intestine | CPT/HCPCS: 99202 ==

== ENCOUNTER 2024-03-05 13:31 | Outpatient (AMB) | payer MEDICAID, SELFPAY ==
--- NOTE | 2024-03-05 14:02 | A.SPINEOV_ITS ---
Intake Visit Reasons: herniation of right side disc Intake Note: Mr. Das is here today c/o right sided back pain. Nuclear Auxiliary Operator Required: Yes Nuclear Auxiliary Operator Name: Tablet Allergies No Known Allergies [No Known Allergies*] Allergy (Verified 03/05/24 14:03) Assessment & Plan Assessment & Plan (1) Lumbar degenerative disc disease: Code(s): M51.369 - Other intervertebral disc degeneration, lumbar region without mention of lumbar back pain or lower extremity pain Category: Medical Plan Dear Dr Hui, Thank you for referring Mr Das to our office today. This visit was done with the help of a video diplomatic interpreter ID [id number]. He is a 44-year-old male with a history of low back issues. He tells me he has had the symptoms for 2 years, it goes along the right side of his low back almost over Neer's iliac crest and will radiate at times down into his right proximal anterior thigh. The symptoms if he is standing too for too long will make his leg feel like it is going to give out. He can not bend or lift anything because the pain gets so severe. To this point he has had no dedicated conservative treatment. He was seen at the [place] [facility] at some point but no injection was done. He was also seen at [facility] and tells me he was supposed to be getting surgery, but when he got on the table something went wrong with his lungs and they had to abort the surgery. Thereafter, no whenever followed up with him. He still co ntinuing to have the pain. He does not have his much leg pain as he had last year but he still does have some. He underwent a new MRI showing some moderate foraminal stenosis at L4 on the right. He is following with us today to see if there is anything we can do surgically. He has had no physical therapy. He has tried [id number] pain medications like ibuprofen and Tylenol without any help. He takes methadone daily for previous addiction issues and that does not really help much either. No cauda equina symptoms. PMH: Asthma, history of colon cancer with some type of resection. He could not tell me if he had a lot of his colon removed or much about the procedure but he has some laparoscopic scars. He has recently had rectal bleeding in his scheduled for colonoscopy this coming Friday. Other than that he has had addiction issues with narcotics in his been on methadone but reports he has no other medical issues. Social hx: Does not smoke, drink, use marijuana or any illicit drugs/narcotics Medications: Methadone and Symbicort inhaler Allergies: None Physical exam: Anxious gentleman no acute distress able to stand up and walk independently, he has an absent right patellar reflex that is strength is normal. Imaging review: He is a lumbar MRI done at [facility] showing good quality of discs, he has some bulging in the right L4 foramen. It seems to narrow the foramen but I am not sure if it is overtly compressing the nerve. There similar findings on the left as well. Impression: 44-year-old male presents with a chronic issue with his right-sided low back which localizes self actually better over the iliac crest and at times will radiate down into his thigh, more proximal than anything else. There can be some tingling sensation there as well. He did have a surgery scheduled at some point on his back at [facility]. He can not recall the name of the surgeon, but tells me that he was going to undergo the surgery but during the initial phase of what sounds like induction for intubation something went wrong and they had to abort the procedure maybe. Either way he did not have the operation but the symptoms did not really go away. He was lost to follow-up from that surgeon. He is here today to establish care with us. From what I can see on his MRI, there is some bulging in the right L4 foramen, it could explain some pain into the thigh but I am not sure how to explain the pain over the iliac crest. Using their diplomatic interpreter, we talked at length about the fact that disc bulging in the lumbar spine can be normal and most of the time is asymptomatic. The best way to see if this could be the source of his symptoms at L4 is to do an injection. He is already known to the [place] [facility] so I will send a referral over to them to see if they will consider a right L4 TFE. If it improves his symptoms, I will discuss with Dr. Pena to see if he thinks his surgical. We will see him back after the injection. Also we will get the records from [facility] to find out what happened with his surgeries. Thank you for allowing us to care for your patient. The total time spent with this visit with this patient was 45 minutes reviewing history, physical exam, lumbar imaging review, and implementation of treatment plan or further diagnostic testing Pedrito Pena MD,PhD [facility] Orders: Referrals Pain Management Referral M51.369 - Other intervertebral disc degeneration, lumbar region without mention of lumbar back pain or lower extremity pain Coding Level of Care Code New Pt Level 4 (55101) Diagnoses Lumbar degenerative disc disease M51.369
== END 2024-03-05 14:34 | disposition home or self-care (01) ==
PROVIDERS: PCP Family Medicine; Referring Provider Family Medicine; Visit Provider Physician Assistant
DX: M51.369 Other intervertebral disc degeneration, lumbar region without mention of lumbar back pain or lower extremity pain (principal)
CPT/HCPCS: 99204

== ENCOUNTER → 2024-03-05 13:31 | Outpatient (BNVA) | payer MEDICAID, SELFPAY | PROVIDERS: PCP Family Medicine; Referring Provider Family Medicine; Visit Provider Physician Assistant | DX: M51.369 Other intervertebral disc degeneration, lumbar region without mention of lumbar back pain or lower extremity pain (principal) | CPT/HCPCS: 99212 ==